=== PATIENT | female | born 1995 | race Caucasian/White ===

== ENCOUNTER → 2017-11-14 | Outpatient (CLI) | payer BC ==
[~2017-11-14] MED LIST: IRON325 M2; MACROBID 1100 MG/CAP PO; MELATONIN0.3 MG; MOBIC 7.5MG7.5 MG; PRIL40 PO; ZOLOFT20 MG/ML; [UNRECOGNIZED DRUG - OTHER]
[2017-11-14 15:51] LABS: COLLECTION METHOD CLEAN CATCH
[2017-11-14 16:29] LABS: PH 8 (5-8); SQUAMOUS EPITHELIAL 0-2 /hpf; URINE APPEARANCE Clear; URINE BACTERIA Rare /hpf; URINE BILIRUBIN Negative (NEGATIVE); URINE BLOOD 1+ (NEGATIVE); URINE COLOR Straw; URINE GLUCOSE Negative (NEGATIVE); URINE KETONE Negative (NEGATIVE); URINE LEUKOCYTE ESTERASE 2+ (NEGATIVE); URINE NITRATE Negative (NEGATIVE); URINE PROTEIN(semi-quant) Negative (NEGATIVE); URINE UROBILINOGEN Negative (NEGATIVE); URINE WBC >50 /hpf
== END ==
LOC: COL.LAB 11:15
PROVIDERS: Family Medicine
DX: R30.0 Dysuria (principal)

== ENCOUNTER → 2018-11-26 | Outpatient (CLI) | payer OTHER | LOC: COL.RAD 10:40 | DX: M25.531 Pain in right wrist (principal) ==

== ENCOUNTER → 2018-12-10 | Outpatient (CLI) | payer OTHER | LOC: COL.RAD 09:10 | DX: M25.531 Pain in right wrist (principal) ==

== ENCOUNTER → 2019-01-22 | Outpatient (CLI) | payer OTHER | LOC: COL.RAD 07:21 | DX: S63.591S Other specified sprain of right wrist, sequela (principal) ==

== ENCOUNTER → 2023-10-16 | Outpatient (CLI) | payer BC | LOC: MHCPAIN 14:06 | DX: M54.2 Cervicalgia (principal); M79.18 Myalgia, other site; G54.0 Brachial plexus disorders | CPT/HCPCS: G0463 ==